=== PATIENT | female | born 1995 | race African-American/Black ===

== ENCOUNTER 2017-12-12 13:29 | Emergency (ER) | payer OTHER ==
[~2017-12-12] VITALS: Ht 162.6 cm; Wt 61.7 kg
[2017-12-12 13:39] VITALS: Ht 162.6 cm; Wt 61.7 kg
[2017-12-12 16:04] VITALS: BP 114/63
== END 2017-12-12 16:03 | disposition home or self-care (01) ==
LOC: ED 13:29
DX: R07.2 Precordial pain (principal); R23.2 Flushing; R51 Headache